=== PATIENT | male | born 1965 | race Caucasian/White ===

== ENCOUNTER 2021-12-14 08:53 | Emergency (ER) | payer MEDICAID, OTHER ==
[~2021-12-14] VITALS: Ht 172.7 cm; Wt 79.4 kg
[2021-12-14] MEDS ORDERED: OLANZAPINE 10 MG VIAL IM ONE ×2 (09:21→09:30)
[2021-12-14 09:33] LABS: BASOPHILS % (AUTO) 0.3 % (0.0-2.0); EOSINOPHILS % (AUTO) 0.8 % (0.0-6.0); HEMATOCRIT 41 % (39-51); HEMOGLOBIN 14.3 g/dL (13.5-17.5); LYMPHOCYTES # (AUTO) 1.2 K/uL (0.8-4.8); LYMPHOCYTES % (AUTO) 18.5 % (20.0-44.0); MEAN CORPUSCULAR HGB CONC 35 g/dl (31.0-36.0); MEAN CORPUSCULAR VOLUME 87 fL (80-96); MONOCYTES # (AUTO) 0.4 K/uL (0.1-1.30); MONOCYTES % (AUTO) 6.2 % (2.0-12.0); NEUTROPHILS % (AUTO) 74.2 % (43.0-81.0); PLATELET COUNT (AUTO) 375 K/uL (150-450); RED BLOOD CELL COUNT(AUTO) 4.72 MIL/uL (4.5-6.0); WHITE BLOOD COUNT (AUTO) 6.7 K/uL (4.3-11.0)
--- NOTE | 2021-12-14 09:34 | NUR ---
URINE COLLECTED AND SENT TO THE LAB
[2021-12-14 10:02] LABS: CALCIUM, SERUM 8.7 mg/dL (8.5-10.1); CARBON DIOXIDE 30 mmol/L (21-32); CHLORIDE 100 mmol/L (98-107); GLUCOSE 87 mg/dL (74-106); POTASSIUM 3.6 mmol/L (3.5-5.1); SODIUM SERUM 136 mmol/L (136-145); UREA NITROGEN, BLOOD 13 mg/dL (7-18)
[2021-12-14 10:07] LABS: ALANINE AMINOTRANSFERASE 27 U/L (12-78); ALBUMIN 3.9 g/dL (3.4-5.0); ALCOHOL, BLOOD < 3 mg/dL (0-0); ALKALINE PHOSPHATASE 95 U/L (46-116); ASPARTATE AMINOTRANSFERASE 26 U/L (15-37); BILIRUBIN,DIRECT 0.1 mg/dL (0.0-0.2); BILIRUBIN,TOTAL 0.4 mg/dL (0.2-1.0); TOTAL PROTEIN, SERUM 8.4 g/dL (6.4-8.2)
[2021-12-14 10:10] LABS: ACETAMINOPHEN < 2 ug/ml (10-30)
[2021-12-14 10:11] LABS: BILIRUBIN,URINE NEGATIVE (NEGATIVE); LEUKOCYTE ESTERASE ,URINE NEGATIVE (NEGATIVE); NITRITE, URINE NEGATIVE (NEGATIVE); PH,URINE 6.5 (5.0-8.0); PROTEIN,URINE NEGATIVE (NEGATIVE); UGLUCOSE NEGATIVE (NEGATIVE); UROBILINOGEN,URINE 0.2 EU/dL (0.2)
[2021-12-14 10:12] LABS: COLOR,URINE STRAW (YELLOW)
--- NOTE | 2021-12-14 10:23 | NUR ---
SS Consult: Pt. Is a 56-year-old male. Pt. demonstrates adequate insight to the reason for hospitalization. Per pt., he was brought to hospital by [employer] and is placed on hold. Pt. was oriented x2 and was hardly cooperative. During interview, pt. was not capable of following directions, did not make appropriate eye-contact, and appeared unkempt. SW explored pt.'s hx of mental health and substance abuse. Pt. reported no hx of mental health, substance abuse, or homicidal ideation. Pt. stated he is suicidal. Per pt., he recently tried cutting himself. Pt. denies visual hallucinations, paranoia, or delusions. Pt. stated having auditory hallucinations. The voices are telling him to cut his veins out. SW explored pt.'s living situation. Per pt., he has been homeless for 3 years. Pt. was not able to answer any further questions. Pt. expressed that he wants to go to a psych. Hospital. Plan: Pt. was not able to provide social security, admitting is working on pt.'s insurance. [facility] will fax clinicals to psych. Hospitals once pt. is medically cleared.
--- NOTE | 2021-12-14 11:30 | NUR ---
BIB [facility] AND JOVANI VELIZ CALLED 911 FOR SELF INFLICTED ABRASIONS TO BACK OF NECK AND L HAND ABRASIONS. PT SAYS "I WANT TO TAKE THE VEIN OUT OF MY HAND." PT WAS BITING ON L HAND WHILE BEING TRIAGED. PD TO WRITE A 5150 HOLD.
--- NOTE | 2021-12-14 13:54 | NUR ---
CALLED [facility]
--- NOTE | 2021-12-14 15:07 | NUR ---
Waiting for pt.'s COVID results. [facility] faxed clinicals to [facility] [fax: [phone], tele: [phone]]. [facility] will contact ER once there is a bed available. [facility] faxed clinicals to: [facility] [fax: [phone], tele: [phone]]- awaiting for response. [facility] [fax: [phone]]- awaiting for response.
--- NOTE | 2021-12-14 15:41 | NUR ---
LAKSHMI FROM [facility] [phone]
--- NOTE | 2021-12-14 16:43 | NUR ---
FAX WHEN COVID RESULT AVAILABLE TO [facility] [phone] LAKSHMI
--- NOTE | 2021-12-14 16:56 | NUR ---
COVID ANTIGEN SWAB DONE AND SENT TO THE LAB
--- NOTE | 2021-12-14 18:41 | NUR ---
CALLED LAB TO FOLLOW UP ON COVID RESULT. WILL NOTIFY US.
--- NOTE | 2021-12-14 20:30 | NUR ---
FAXED COVID RESULTS TO [facility]
--- NOTE | 2021-12-14 22:10 | NUR ---
Barbara munguia in [facility] - 12/14/21 at 2236 by PABLO ACTIVE SEIZURE STATED 2206 & LASTED FOR 2 MINUTES 30 SECS. 2207 - ATIVEN 2MG IM ADMINISTED R [place] SEIZURE PRECAUTIONS IN PLACE.
--- NOTE | 2021-12-15 01:53 | NUR ---
PT SLEEPING IN BED. VSS. PT IN NO ACUTE DISTRESS AT THIS TIME. SAFETY 1:[address]
--- NOTE | 2021-12-15 04:44 | NUR ---
PT TO [facility] ROOM 100-G REPORT
--- NOTE | 2021-12-15 04:48 | NUR ---
Barbara munguia in [facility] - 12/15/21 at 0453 by [facility] ETA 100-G
--- NOTE | 2021-12-15 04:53 | NUR ---
[facility] ETA 0600
--- NOTE | 2021-12-15 05:01 | NUR ---
REPORT GIVEN NURSE MONIQUE AT [facility]
[2021-12-15 06:16] VITALS: BP 159/86
--- NOTE | 2021-12-15 06:18 | NUR ---
REPORT GIVEN TO [facility] FOR TRANSPORTATION. PT'S VSS; DENIES PAIN. ADLS DONE.
--- NOTE | 2021-12-15 06:28 | NUR ---
PT TRANSFERRED TO [facility] VIA [facility] BLS PROTOCOL. VSS. ALL BELONGINGS WITH PT.
== END 2021-12-15 06:29 ==
LOC: ER 08:58
DX: F29 Unspecified psychosis not due to a substance or known physiological condition (principal); F15.10 Other stimulant abuse, uncomplicated; S61.412A Laceration without foreign body of left hand, initial encounter; X78.1XXA Intentional self-harm by knife, initial encounter; Y92.89 Other specified places as the place of occurrence of the external cause; Z20.822 Contact with and (suspected) exposure to COVID-19
CPT/HCPCS: 36415; 80048; 80076; 80143; 80307; 80320; 81003; 85025; 87426; 96372; 99285; C9803 ×2; J3490; U0003; G0480